=== PATIENT | male | born 1980 | race Caucasian/White ===

== ENCOUNTER 2021-11-09 21:58 | Emergency (ER) | payer OTHER, SELFPAY ==
--- NOTE | 2021-11-09 22:04 | PC.NURSE ---
patient walked out to make phone call according to registration
--- NOTE | 2021-11-09 22:09 | PC.NURSE ---
patient has returned back to waiting room.
[2021-11-09 22:18] VITALS: BP 109/65; PULSE 115; RESP 16; TEMP 36.8; O2SAT 97
--- NOTE | 2021-11-09 22:28 | ED.GENADULT ---
HPI - General Adult General Chief complaint: Wound/Laceration Stated complaint: spider bite right buttock History of Present Illness HPI narrative: This is a 41-year-old male presenting ED with a spider bite on his right buttock. Patient noticed that he had bite Tuesday. It became red and indurated and painful. He has not noted any fluctuance or drainage from the. He is here today to obtain antibiotics. Patient has no history of cellulitis. Not visualized spider. He is complaining of generalized arthralgias but has no other complaints. Patient is daily drinker. Related Data Allergies Allergy/AdvReac Type Severity Reaction Status Date / Time codeine Allergy Jittery Verified 11/09/21 22:23 Review of Systems Review of Systems: CONSTITUTIONAL: Denies night sweats. EYES: No eye pain ENT: Denies rhinorrhea CARDIOVASCULAR: Denies palpitations RESPIRATORY: Denies hemoptysis GASTROINTESTINAL: Denies hematemesis GENITOURINARY: Denies hematuria. SKIN: Denies rash MUSCULOSKELETAL: Denies myalgia. NEUROLOGIC: Denies weakness. PSYCHIATRIC: Denies delusions PMFSH Past Medical History Medical History ETOHism Surgical History Surgical History H/O wrist surgery Social History Social History (Updated 11/09/21 @ 22:30 by Jeferson Perdue MD) Social History: Positive for daily alcohol use. Exam Narrative: APPEARANCE: No apparent distress. Head atraumatic. EYES: PERRLA/EOMI, NOSE: Normal no drainage NECK: Supple, Trachea midline RESPIRATORY: CTAB, No increased work of breathing. CARDIOVASCULAR: S1S2 appreciated ABDOMINAL: Soft, nontender, nondistended, MUSCULOSKELETAl: No obvious deformities NEURO: Alert. Moving 4/4 extremities SKIN:: Patient has a area of erythema and induration over the right glute that is approx 7 x 7 cm. There is no fluctuance. Point of care ultrasound revealed edema but no abscess. PSYCHIATRIC: Normal affect Course Vital Signs Vital signs: Vital Signs Temperature 98.2 F 11/09/21 22:18 Pulse Rate 115 H 11/09/21 22:18 Respiratory Rate 16 11/09/21 22:18 Blood Pressure 109/65 11/09/21 22:18 Pulse Oximetry 97 11/09/21 22:18 Oxygen Delivery Room Air 11/09/21 22:18 Temperature 98.2 F 11/09/21 22:18 Pulse Rate 115 H 11/09/21 22:18 Respiratory Rate 16 11/09/21 22:18 Blood Pressure 109/65 11/09/21 22:18 Pulse Oximetry 97 11/09/21 22:18 Oxygen Delivery Room Air 11/09/21 22:18 Medical Decision Making MDM Narrative Medical decision making narrative: Patient presented for a spider bite on his right glute. Differential includes cellulitis versus brown recluse bite. Patient is complaining of systemic arthralgia and is tachycardic. Lab work has been ordered to evaluate for hemolysis or coagulopathy. He will be given 1 L fluids. Patient was started on Keflex. Lab work was indicative of dehydration. Patient's heart rate improved with fluids. I offered the patient another L of fluids but he declined stating he'd rather go home and get some sleep.Patient will be discharged home with a prescription for Keflex. Instructed follow-up with primary care physician in 3-5 days for further evaluation of his wound. Vital Signs Vital Signs: Vital Signs Temperature 98.2 F 11/09/21 22:18 Pulse Rate 115 H 11/09/21 22:18 Respiratory Rate 16 11/09/21 22:18 Blood Pressure 109/65 11/09/21 22:18 Pulse Oximetry 97 11/09/21 22:18 Oxygen Delivery Room Air 11/09/21 22:18 Temperature 98.2 F 11/09/21 22:18 Pulse Rate 115 H 11/09/21 22:18 Respiratory Rate 16 11/09/21 22:18 Blood Pressure 109/65 11/09/21 22:18 Pulse Oximetry 97 11/09/21 22:18 Oxygen Delivery Room Air 11/09/21 22:18 Lab Data Result diagrams: 11/09/21 22:42 11/09/21 22:42 Labs: Lab Results 11/09/21 11/09/21
[2021-11-09 22:30] VITALS: BP 102/61; PULSE 109; RESP 18; O2SAT 98
[2021-11-09] MEDS: IBUPROFEN 400 MG TABLET 800 MG PO (22:33)
[2021-11-09] MEDS: CEPHALEXIN 500 MG CAPSULE PO (22:33)
[2021-11-09] MEDS: ACETAMINOPHEN 500 MG TABLET 1000 MG PO (22:34)
[2021-11-09] MEDS: SODIUM CHLORIDE 0.9% IV 1,000 ML 999 ML IV CONT (22:34)
[2021-11-09] MEDS: TETANUS,DIPHTHERIA,AC PERTUSSIS ADULT 0.5 ML (ADACEL) IM (22:37)
[2021-11-09 22:45] LABS: Basophils Absolute Auto 0.02 K/mm3 (0.00-0.10); Basophils Percent Auto 0.2 % (0.0-1.0); Eosinophils Absolute Auto 0.08 K/mm3 (0.02-0.50); Eosinophils Percent Auto 0.7 % (1.0-6.0); Hematocrit 38.1 % (40.0-54.0); Hemoglobin 13.2 g/dL (14.0-18.0); Immature Granulocyte Absolute 0.04 K/mm3 (0.00-0.00); Immature Granulocyte Percent A 0.3 % (0.0-0.0); Lymphocytes Absolute Auto 1.93 K/mm3 (1.10-4.50); Lymphocytes Percent Auto 16.9 % (18.0-42.0); Mean Corpuscular HGB Conc 34.6 g/dL (32.0-36.0); Mean Corpuscular Hemoglobin 31.3 pg (27.0-31.0); Mean Corpuscular Volume 90.3 fL (78.0-102.0); Mean Platelet Volume 9.9 fl (8.7-11.0); Monocytes Absolute Auto 0.82 K/mm3 (0.10-0.90); Monocytes Percent Auto 7.2 % (2.0-11.0); Neutrophils Absolute Auto 8.6 K/mm3 (1.7-7.2); Neutrophils Percent Auto 74.7 % (50.0-70.0); Platelet Count Result 194 K/mm3 (150-420); Red Blood Count 4.22 M/mm3 (4.70-6.10); Red Cell Distribution Width 12.3 % (11.6-14.4); White Blood Count 11.5 K/mm3 (4.8-10.8)
[2021-11-09 22:57] LABS: Anion Gap 8 mmol/L (8-16); Blood Urea Nitrogen 11 mg/dL (7-18); Calcium 8.4 mg/dL (8.5-10.1); Carbon Dioxide 28 mmol/L (21-32); Chloride 97 mmol/L (98-108); Estimated Glomerular Filt Rate > 60; Glucose 203 mg/dL (70-99); Osmolality Calculated 281 mOsm/kg (285-295); Potassium 3.2 mmol/L (3.5-5.1); Sodium 133 mmol/L (136-145)
[2021-11-09 23:02] LABS: Partial Thromboplastin Time 32.1 SEC (23.90-30.70); Prothrombin Time 10.7 Seconds (9.50-12.10)
[2021-11-09 23:08] VITALS: BP 110/53; PULSE 104; RESP 18; TEMP 36.7; O2SAT 100
== END 2021-11-09 23:18 | disposition home or self-care (01) ==
PROVIDERS: Emergency Provider Emergency Medicine; PCP Family Medicine
DX: T63.301A Toxic effect of unspecified spider venom, accidental (unintentional), initial encounter (principal)
CPT/HCPCS: 36415; 80048; 85025; 85610; 85730; 90471; 90715; 96360; 99283; A9270; J7030

== ENCOUNTER 2022-11-27 12:32 | Emergency (ER) | payer OTHER, SELFPAY ==
--- NOTE | ~2022-11-27 | XR_ITS ---
EXAMINATION: XR knee RT 3V DATE: 11/27/2022 13:02 INDICATION: Right knee pain and swelling TECHNIQUE: Four views of the right knee were obtained. COMPARISON: None. FINDINGS: Alignment is normal. No fracture or osteochondral lesion. Joint spaces are normal with no e rosions. No joint effusion/synovitis. There is anterior prepatellar and infrapatellar soft tissue s welling. Medial soft tissue swelling is also seen. IMPRESSION: 1. Anterior and medial soft tissue swelling of the knee without acute osseous abnormality identified. Acute osseous abnormality. Reviewed, dictated and finalized at location A. IMPRESSION: 1. Anterior and medial soft tissue swelling of the knee without acute osseous a bnormality identified. Acute osseous abnormality.
[2022-11-27 12:34] VITALS: BP 138/92; PULSE 102; RESP 20; TEMP 37.3; O2SAT 99
--- NOTE | 2022-11-27 12:42 | ED.SKABFB ---
HPI - Skin/Abscess/Foreign Bdy General Chief complaint: Extremity Problem,Nontraumatic Stated complaint: knee pain Time Seen by Provider: 11/27/22 12:42 Source: patient Mode of arrival: ambulatory Limitations: no limitations History of Present Illness HPI narrative: 42-year-old male presents to the ER with -- abscess in front of the right knee which is draining pus. A nail entered his skin 1 week ago. No fever or chills complaint: abscess/boil Onset (ago): week(s) ( 1 week ago) Tetanus up to date: no Severity: moderate Quality: aching Pain Consistency: constant Relieving factors: none Exacerbating factors: none Context: none Associated symptoms: denies other symptoms Treatments prior to arrival: none Related Data Allergies Allergy/AdvReac Type Severity Reaction Status Date / Time codeine Allergy Jittery Verified 11/27/22 12:34 Review of Systems Review of Systems: All systems reviewed & are unremarkable except as noted in HPI and below Constitutional: Constitutional: Reports as per HPI and Reports no additional constitutional complaints Eyes: Eyes: Reports as per HPI and Reports no additional eye complaints ENT: Reports system reviewed and no additional complaints, except as documented and Reports as per HPI Cardiovascular: Cardiovascular: Reports as per HPI and Reports no additional cardiovascular complaints Respiratory: Respiratory: Reports as per HPI and Reports no additional respiratory complaints Gastrointestinal: Gastrointestinal: Reports as per HPI and Reports no additional gastrointestinal complaints Genitourinary: Genitourinary: Reports no additional male genitourinary complaints and Reports as per HPI Musculoskeletal: Musculoskeletal: Reports no additional musculoskeletal complaints and Reports as per HPI Comments: chronic shoulder and knee pain. Currently has 2 cm and 2 cm soft tissue swelling in front of the right knee. Integumentary/Breasts: Comments: Right knee abscess. Neurologic: Reports system reviewed and no additional complaints, except as documented and Reports as per HPI Psychiatric: Psychiatric: Reports no additional psychiatric complaints and Reports as per HPI Endocrine: Endocrine: Reports no additional endocrine complaints and Reports as per HPI Hematologic/Lymphatic: Hematologic/Lymphatic: Reports no additional hematologic/lymphatic complaints and Reports as per HPI Allergic/Immunologic: Allergic/Immunologic: Reports no additional allergic/immunologic complaints and Reports as per HPI PMF Past Medical History Medical History (Updated 11/27/22 @ 13:37 by Rhett Wallis MD) Arthritis ETOHism Surgical History Surgical History H/O wrist surgery Social History Social History (Updated 11/09/21 @ 22:30 by Jeferson Perdue MD) Social History: Positive for daily alcohol use. Exam Const: General: healthy appearing Nutritional Appearance: well nourished Orientation/consciousness: patient oriented x3 Limitations: no limitations HENMT: Head: normal to inspection Ears: external ears normal Face/Nose/Sinus: Normal external nose present Face and sinus: normal facial exam Mouth: Yes Normal oral and palatal mucosa present Throat: posterior oropharynx normal Eyes: Conjunctivae: conjunctivae normal Pupils: Equal, round and reactive pupils present EOM: EOMs intact bilaterally Direct Ophthalmoscopy: no photophobia Neck: Neck: normal visual inspection, no lymphadenopathy and no meningeal signs Chest: Chest palpation & inspection: normal inspection of the chest Resp: Effort & Inspection: normal respiratory effort Auscultation: rhonchi Cardio: Rate: regular rate Rhythm: regular rhythm GI: Auscultation: normal bowel sounds Other: no tenderness/ rigidity / rebound. : General: Yes no CVA tenderness Back/Spine/Pelvis: Back: no CVA tenderness Skin: General skin exam: normal
[2022-11-27 12:45] VITALS: BP 138/92; PULSE 102; RESP 20; TEMP 37.3; O2SAT 99
[2022-11-27] MEDS: TETANUS,DIPHTHERIA,AC PERTUSSIS ADULT 0.5 ML (ADACEL) IM (13:28)
[2022-11-27] MEDS: IBUPROFEN 400 MG TABLET PO (14:10)
[2022-11-27 14:13] VITALS: BP 160/90; PULSE 91; RESP 18; TEMP 37.2; O2SAT 100
== END 2022-11-27 14:13 | disposition home or self-care (01) ==
PROVIDERS: Emergency Provider Internal Medicine Critical Care Medicine; PCP Family Medicine
DX: L02.415 Cutaneous abscess of right lower limb (principal); Z23 Encounter for immunization
CPT/HCPCS: 10060; 73562; 90715; 96372; 99283; A9270

== ENCOUNTER 2023-01-22 10:25 | Outpatient (CLI) | payer OTHER, SELFPAY ==
--- NOTE | ~2023-01-22 | MR_ITS ---
EXAMINATION: MR brain/brain stem wo/w con DATE: 01/22/2023 11:49 INDICATION: Intracranial injury. Loss of consciousness. TECHNIQUE: Magnetic resonance imaging (MRI) of the brain and brainstem was performed without and with 15 mL MultiHance intravenous contrast. COMPARISON: None. FINDINGS: There are a few areas of nonspecific increased T2-weighted signal intensity in the cerebral white matter, which is within normal limits for the patient's age. There is no intracranial hemorrh age, acute infarction, or abnormal intracranial mass lesion. The ventricles are normal in size. There is mucosal thickening in the paranasal sinuses. The orbits are normal. The mastoid air cells are nor mal. IMPRESSION: 1. Normal aging brain. Reviewed, dictated and finalized at location E. IMPRESSION: 1. Normal aging brain.
== END 2023-01-22 10:26 | disposition home or self-care (01) ==
LOC: CHSIMG 10:26
PROVIDERS: PCP Family Medicine; Visit Provider Family Medicine
DX: S06.9X9A Unspecified intracranial injury with loss of consciousness of unspecified duration, initial encounter (principal)
CPT/HCPCS: 70553; A9577